=== PATIENT | female | born 1945 | race Hispanic/Latino ===

== ENCOUNTER 2022-10-14 17:44 | Emergency (ER) | payer OTHER ==
[~2022-10-14] VITALS: Ht 157.5 cm; Wt 59.4 kg
[~2022-10-14 17:44] MED LIST: COLACE100 MG PO; LEVAQUIN500 MG PO; LISINOPRIL-HCT1 EACH PO; TYLENOL WITH C1 EACH PO
[2022-10-14 19:17] VITALS: O2SAT 100
== END 2022-10-14 19:20 | disposition home or self-care (01) ==
LOC: ER 17:55
DX: S00.31XA Abrasion of nose, initial encounter (principal); W01.0XXA Fall on same level from slipping, tripping and stumbling without subsequent striking against object, initial encounter; Y93.01 Activity, walking, marching and hiking; Y92.89 Other specified places as the place of occurrence of the external cause; I10 Essential (primary) hypertension
CPT/HCPCS: 70450; 70486; 99283